=== PATIENT | female | born 1990 | race Caucasian/White ===

== ENCOUNTER 2021-05-15 06:46 | Outpatient (CLI) | payer OTHER ==
[2021-05-15 08:03] LABS: SARS-CoV-2 NAA Rapid Test Not Detected (NotDetected)
== END 2021-05-15 06:47 | disposition home or self-care (01) ==
LOC: CSHLAB 06:46
PROVIDERS: ATTEND Emergency Medicine
DX: Z20.822 Contact with and (suspected) exposure to COVID-19 (principal)
CPT/HCPCS: U0002

== ENCOUNTER 2021-08-03 00:20 | Emergency (ER) | payer OTHER ==
[2021-08-03] MEDS ORDERED: Promethazine HCl 25 MG/ML VIAL ONE (00:42)
[2021-08-03] MEDS ORDERED: Ondansetron PF 4 MG/2 ML Vial ONE ×2 (00:42)
[2021-08-03 00:50] LABS: #Eosinphils 0.1 10x3/uL (0.0-0.5); #Monocytes 0.9 10x3/uL (0.0-1.1); #Neutrophils 16.6 10x3/uL (1.5-8.4); %Basophils 0.2 % (0.0-2.0); %Eosinophils 0.6 % (0.0-6.0); %Lymphocytes 4.7 % (18.0-47.0); %Monocytes 4.8 % (0.0-10.0); %Neutrophils 89.3 % (40.0-75.0); Mean Corpuscular HGB CONC 33.1 g/dL (32.0-36.0); Mean Corpuscular Hemoglobin 29.5 pg (27.0-33.0); Mean Corpuscular Volume 89.1 fl (81.6-98.3); Mean Platelet Volume 10.5 fl (7.4-10.4); Platelet Count 304 10x3/uL (150-450); Red Blood Cell (RBC) Count 5.43 10x6/uL (3.90-5.03); White Blood Cell (WBC) Count 18.6 10x3/uL (3.5-10.5)
[2021-08-03 01:00] LABS: BHCG - Serum Negative (NEGATIVE); Pregs Control Background? CLEAR/WHITE (CLR/WHITE); Pregs Control Bar Appear? YES (CONTROL BAR)
[2021-08-03 01:02] LABS: ALT (SGPT) 22 U/L (8-55); AST (SGOT) 21 U/L (5-34); Albumin 4.5 g/dL (3.5-5.0); Alkaline Phosphatase 83 U/L (40-110); Anion Gap 13 mmol/L (10-20); BUN (Urea Nitrogen) 17 mg/dL (7.0-18.7); Bilirubin, Total 0.7 mg/dL (0.2-1.2); Calc. Creatinine Clearance 0 mL/min (70-130); Calcium 9.1 mg/dL (7.8-10.44); Carbon Dioxide 18 mmol/L (22-29); Chloride 111 mmol/L (98-107); Globulin 3.4 g/dL (2.4-3.5); Glucose 130 mg/dL (70-105); Lipase 20 U/L (8-78); Potassium 4.4 mmol/L (3.5-5.1); Protein, Total 7.9 g/dL (6.0-8.3); Sodium 138 mmol/L (136-145)
== END 2021-08-03 03:37 | disposition home or self-care (01) ==
LOC: CSHERS 00:20
DX: R11.2 Nausea with vomiting, unspecified (principal); R10.13 Epigastric pain; R19.7 Diarrhea, unspecified; D72.829 Elevated white blood cell count, unspecified; K21.9 Gastro-esophageal reflux disease without esophagitis; Z79.899 Other long term (current) drug therapy
CPT/HCPCS: 80053; 83690; 84703; 85025; 96374; 96375; J2405; J2550

== ENCOUNTER → 2021-09-10 | Day surgery (SDC) | payer OTHER ==
[2021-09-10 10:56] LABS: SARS-CoV-2 NAA Rapid Test Not Detected (NotDetected)
== END ==
LOC: CSHER/OP 09:59
PROVIDERS: ATTEND Family Medicine
DX: Z20.822 Contact with and (suspected) exposure to COVID-19 (principal)
CPT/HCPCS: U0002

== ENCOUNTER 2024-06-03 17:33 | Emergency (ER) | payer BC ==
[~2024-06-03 17:33] MED LIST: Iopamidol 370 76% 100 ML VIAL ONE
[2024-06-03 18:15] LABS: #Basophils 0.07 10x3/uL (0.0-0.2); #Eosinphils 0.17 10x3/uL (0.0-0.5); #Monocytes 0.63 10x3/uL (0.0-1.1); #Neutrophils 6.38 10x3/uL (1.5-8.4); %Basophils 0.6 % (0.0-2.0); %Eosinophils 1.4 % (0.0-6.0); %Lymphocytes 38.3 % (18.0-47.0); %Monocytes 5.3 % (0.0-10.0); %Neutrophils 53.9 % (40.0-75.0); Hematocrit 40.5 % (34.9-44.5); Hemoglobin 13.7 g/dL (12.0-15.5); Mean Corpuscular HGB CONC 33.8 g/dL (32.0-36.0); Mean Corpuscular Hemoglobin 29.6 pg (27.0-33.0); Mean Corpuscular Volume 87.5 fL (81.6-98.3); Mean Platelet Volume 10.1 fL (7.4-10.4); Platelet Count 397 10x3/uL (150-450); Red Blood Cell (RBC) Count 4.63 10x6/uL (3.90-5.03); White Blood Cell (WBC) Count 11.8 10x3/uL (3.5-10.5)
[2024-06-03 18:26] LABS: BHCG - Serum Negative (NEGATIVE); Pregs Control Background? CLEAR/WHITE (CLR/WHITE); Pregs Control Bar Appear? YES (CONTROL BAR)
[2024-06-03 18:29] LABS: ALT (SGPT) 22 U/L (8-55); AST (SGOT) 19 U/L (5-34); Albumin 3.9 g/dL (3.5-5.0); Alkaline Phosphatase 63 U/L (40-110); Anion Gap 12 mmol/L (10-20); BUN (Urea Nitrogen) 11 mg/dL (7.0-18.7); Bilirubin, Total 0.5 mg/dL (0.2-1.2); Calc. Creatinine Clearance 0 mL/min (70-130); Calcium 9.1 mg/dL (7.8-10.44); Carbon Dioxide 21 mmol/L (22-29); Chloride 107 mmol/L (98-107); Estimated GFR 77; Glucose 72 mg/dL (70-105); Potassium 3.3 mmol/L (3.5-5.1); Protein, Total 6.9 g/dL (6.0-8.3); Sodium 137 mmol/L (136-145)
[2024-06-03] MEDS ORDERED: Dexamethasone 10 MG/ML VIAL ONE (19:30)
[2024-06-03] MEDS ORDERED: Magnesium 2 GM/50 ML BAG (IN WATER) ONE (19:30)
[2024-06-03] MEDS ORDERED: Albuterol 2.5 MG (3 mL) NEB ONE (19:36)
[2024-06-03] MEDS ORDERED: Ipratropium/Albuterol 3 ML NEB ONE (19:36)
[2024-06-03 19:53] LABS: Troponin I Less than 0.010 ng/mL (< 0.028)
[2024-06-03] MEDS ORDERED: Potassium Chloride 20 MEQ TAB ONE (19:58)
[2024-06-03] MEDS ORDERED: cefTRIAXone (ROCEPHIN) 2 GM VIAL ONE (19:58)
[2024-06-03 20:47] LABS: Influenza A by NAA Not Detected (NotDetected); Influenza B by NAA Not Detected (NotDetected); SARS-CoV-2 NAA Rapid Test Not Detected (NotDetected)
== END 2024-06-03 21:08 | disposition home or self-care (01) ==
LOC: CSHERS 17:33
DX: J18.9 Pneumonia, unspecified organism (principal); J45.909 Unspecified asthma, uncomplicated; E87.6 Hypokalemia
CPT/HCPCS: 71275; 80053; 84443; 84484; 84703; 94644; 94760; 96365; 96367; 96375; J0696; J1100; J3475; J7611; J7620; Q9967